=== PATIENT | male | born 1955 | race African-American/Black ===

== ENCOUNTER 2024-08-08 09:38 | Emergency (ER) | payer MEDICARE, MEDICAID ==
[~2024-08-08] VITALS: Ht 185.4 cm; Wt 100.0 kg
[2024-08-08 09:44] VITALS: O2SAT 95
[2024-08-08 10:39] LABS: HEMATOCRIT. 38.1 % (42.0-52.0); HEMOGLOBIN. 12.1 g/dL (14.0-18.0); MEAN CORPUSCULAR HEMOGLOBIN 28.1 pg (28.0-32.0); MEAN CORPUSCULAR HGB CONC 31.8 g/dL (31.0-37.0); MEAN CORPUSCULAR VOLUME 88.6 fL (80.0-94.0); PLATELET 161 x1000/uL (130-400); RED CELL DISTRIBUTION WIDTH 13.4 % (11.6-14.6); WHITE BLOOD COUNT 10.3 x1000/uL (4.5-11.0)
[2024-08-08 10:47] LABS: CHLORIDE 108 mEq/L (98-107); POTASSIUM 4.3 mEq/L (3.5-5.1); SODIUM 142 mEq/L (136-145)
[2024-08-08 10:48] LABS: CARBON DIOXIDE 27 mEq/L (21-32)
[2024-08-08 10:49] LABS: CALCIUM 9.6 mg/dL (8.7-10.4)
[2024-08-08 10:53] LABS: CREATININE 1.2 mg/dL (0.6-1.3); GLUCOSE 375 mg/dL (70-105)
[2024-08-08 10:54] LABS: UREA NITROGEN BLOOD 24 mg/dL (9-23)
[2024-08-08 10:55] LABS: ALANINE AMINOTRANSFERASE < 7 IU/L (10-49); ALBUMIN 3.8 g/dL (3.2-4.8)
[2024-08-08 10:56] LABS: BILIRUBIN TOTAL 0.3 mg/dL (0.1-1.0); PROTEIN TOTAL 6.9 g/dL (6.0-8.3)
[2024-08-08 11:00] LABS: ASPARTATE AMINOTRANSFERASE < 8 IU/L (<34); BILIRUBIN DIRECT < 0.1 mg/dL (<=3.0)
[2024-08-08 11:11] LABS: DIFFERENTIAL COMMENT 1
[2024-08-08] MEDS ORDERED: ACETAMINOPHEN 650MG SUPP PR PRN (11:15)
[2024-08-08] MEDS ORDERED: DEXT 5%/0.45% NACL 1000ML 1,000 ML IV SCH (11:15)
[2024-08-08] MEDS ORDERED: CLONIDINE 0.1MG TABLET PO PRN (11:15)
[2024-08-08] MEDS ORDERED: ONDANSETRON HCL 4MG/2ML INJ IV PRN (11:15)
[2024-08-08] MEDS ORDERED: PANTOPRAZOLE SODIUM 40 MG/VIAL IV SCH (11:15)
[2024-08-08 11:39] LABS: IRON 40 ug/dL (65-175)
[2024-08-08 11:42] LABS: TOTAL IRON BINDING CAPACITY 280 ug/dl (250-425)
[2024-08-08 13:20] VITALS: BP 139/91; PULSE 102; RESP 18; TEMP 37.16964; O2SAT 100
[2024-08-08 13:58] LABS: T4 FREE 1.46 ng/dL (0.89-1.76)
[2024-08-08 17:06] LABS: PLATELET ESTIMATE NORMAL
[2024-08-08] MEDS ORDERED: INSULIN GLARGINE 100 UNITS/ML SUBCUT SCH (22:00)
== END 2024-08-08 13:21 ==
LOC: ER 09:38
DX: Z00.00 Encounter for general adult medical examination without abnormal findings (principal); J44.9 Chronic obstructive pulmonary disease, unspecified; I10 Essential (primary) hypertension; E11.9 Type 2 diabetes mellitus without complications; Z86.73 Personal history of transient ischemic attack (TIA), and cerebral infarction without residual deficits; Z86.59 Personal history of other mental and behavioral disorders
CPT/HCPCS: 36415; 71045; 80048; 80076; 83540; 83550; 84439; 84481; 85025; 99284